=== PATIENT | male | born 1940 | race Caucasian/White ===

== ENCOUNTER 2019-12-22 12:29 | Emergency (ER) | payer MEDICARE ==
[~2019-12-22] VITALS: Ht 180.3 cm; Wt 83.2 kg
--- NOTE | 2019-12-22 12:54 | NUR ---
REQUESTING COVID TEST. REPORTS FEVER, CHILLS, CONGESTION YESTERDAY HOWEVER SYMPTOMS RESOLVED TODAT.
--- NOTE | 2019-12-22 13:08 | NUR ---
PT HERE FOR COVID TEST. DENIES COVID EXPOSURE. LAST NOC: FEVER, CHILLS, RUNNY NOSE. (DIDN'T TAKE TEMP AT HOME)DENIES THESE SX TODAY. TOOK ASA LAST NOC. + SENSE OF SMELL AND TASTE.
[2019-12-22 13:12] VITALS: BP 144/77
--- NOTE | 2019-12-22 13:15 | NUR ---
PT UPSET THAT HE CAN'T "JUST GET A COVID TEST AND GET OUT OF HERE" INFORMED PT THAT THE ED HAS PROCEDURES TO FOLLOW AND INFORMATION TO OBTAIN FOR EACH VISIT. PT STATES "WE'RE IN A MIDDLE OF A PANDEMIC AND IT SEEMS THAT YOU AREN'T SET UP FOR QUICK TESTING". INFORMED PT THAT TEST USUALLY HAS A 3 DAY TURN-AROUND TIME AND THAT QUICK TESTS ARE USUALLY RESERVED FOR PATIENTS WHO ARE ADMITTED. PT STATES "I COULD HAVE GONE THROUGH AT DRIVE THROUGH TEST." PT ASKED IF HE WAS GOING TO BE ADMITTED. INFORMED PT THAT THERE ISN'T AN ADMISSION ORDER; THAT PT MAY LEAVE DEPARTMENT, IF HE CHOOSES. DR DESHPANDE NOW AT BS
--- NOTE | 2019-12-22 13:28 | NUR ---
PT NOT IN ROOM; ELOPED.
== END 2019-12-22 13:30 | disposition left against medical advice (07) ==
LOC: ED 13:24
DX: B34.9 Viral infection, unspecified (principal); Z20.828 Contact with and (suspected) exposure to other viral communicable diseases; R50.9 Fever, unspecified; R09.81 Nasal congestion
CPT/HCPCS: 87635; 99283